=== PATIENT | female | born 1995 | race Caucasian/White ===

== ENCOUNTER 2018-08-14 11:59 | Day surgery (SDC) | payer OTHER ==
[2018-08-14] MEDS ORDERED: DESFLURANE 15 MIN (14:00)
[2018-08-14] MEDS ORDERED: PROPOFOL 20 ML (14:10)
[2018-08-14] MEDS ORDERED: DEXAMETHASONE 4 MG/ML 5 ML INJ (14:10)
[2018-08-14] MEDS ORDERED: FENTAnyl 50 MCG/ML VIAL (14:10)
[2018-08-14] MEDS ORDERED: GLYCOPYRROLATE 0.4 MG INJ (14:10)
[2018-08-14] MEDS ORDERED: ONDANSETRON 4 MG INJ (14:10)
[2018-08-14] MEDS ORDERED: NEOSTIGMINE 3 MG/3 ML SYRINGE (14:10)
[2018-08-14] MEDS ORDERED: MIDAZOLAM 1 MG/ML 2 ML INJ (14:10)
[2018-08-14] MEDS ORDERED: CEFAZOLIN 1 GM INJ (14:10)
[2018-08-14] MEDS ORDERED: ROCURONIUM 50 MG INJ (14:10)
[2018-08-14] MEDS ORDERED: EPHEDrine 25 MG/5 ML SYG IV (14:30)
[2018-08-14] MEDS ORDERED: IPRATROPIUM (NEB) 0.5 MG/2.5 ML AMP HHN (14:30)
[2018-08-14] MEDS ORDERED: ALBUTEROL 0.083% (NEB) 2.5 MG/3 ML AMP HHN (14:30)
[2018-08-14] MEDS ORDERED: LABETALOL HCL 20MG INJ IV (14:30)
[2018-08-14] MEDS ORDERED: ONDANSETRON 4 MG INJ IV (14:30)
[2018-08-14] MEDS ORDERED: TRIMETHOBENZAMIDE 100 MG/ML VIAL IM (14:30)
[2018-08-14] MEDS ORDERED: FENTAnyl 50 MCG/ML VIAL IV ×3 (14:30)
[2018-08-14] MEDS ORDERED: hydrALAzine 20 MG INJ IV (14:30)
[2018-08-14] MEDS ORDERED: MIDAZOLAM 1 MG/ML 2 ML INJ IV (14:30)
[2018-08-14] MEDS ORDERED: OXYCODONE/ACETAMINOPHEN (5/325) TAB PO ×2 (14:30)
[2018-08-14] MEDS ORDERED: MEPERIDINE 25 MG INJ IV (14:30)
[2018-08-14] MEDS ORDERED: DIPHENHYDRAMINE 50 MG INJ IV (14:30)
[2018-08-14] MEDS ORDERED: HYDROmorphONE 1 MG/5 ML IV SYRINGE IV ×3 (14:30)
[2018-08-14] MEDS ORDERED: SUGAMMADEX SODIUM 200 MG/2 ML VIAL IV (14:41)
[2018-08-14] MEDS ORDERED: morphine 2 MG INJ IV (15:30)
== END 2018-08-14 16:55 | disposition home or self-care (01) ==
LOC: SDS 11:59
DX: J35.01 Chronic tonsillitis (principal); E66.01 Morbid (severe) obesity due to excess calories
CPT/HCPCS: 42826; 88304

== ENCOUNTER 2018-08-15 17:56 | Emergency (ER) | payer OTHER | END 2018-08-15 20:40 | disposition home or self-care (01) | LOC: E/R 17:56 | DX: J02.9 Acute pharyngitis, unspecified (principal) | CPT/HCPCS: 99283; Z7502 ==